=== PATIENT | female | born 1950 | race Caucasian/White ===

== ENCOUNTER → 2016-10-19 | Outpatient (CLI) | payer OTHER ==
--- NOTE | 2016-10-19 10:42 | DX ---
DEXA Bone Mineral Densitometry Clinical Indications: Postmenopausal, family history of osteoporosis, history of breast cancer Comparison: December 07, 2010 (outside- low bone density ) Technique: Bone Mineral Densitometry (BMD) by Dual Energy X-Ray Absorptiometry (DEXA) was performed utilizing the [employer] scanner. The lumbar spine was evaluated in the AP projection. The bilat eral hips and forearm were evaluated in the AP projection. Vertebral fracture assessment was also pe rformed. AP Lumbar Spine: The L1, L2, L3 and L4 vertebral bodies were evaluated. BMD: 1.089 gm/cm2 T-score: -0.9 SD Z-score: 1.1 SD AP Left Hip: Neck BMD: 0.699 gm/cm2 T-score: -2.4 SD Z-score: -0.7 SD AP Right Hip: Neck BMD: 0.675 gm/cm2 T-score: -2.6 SD Z-score: -0.9 SD AP Left Forearm, 10/20: BMD: 0.847 gm/cm2 T-score: -0.3 SD Z-score: 1.0 SD No significant change considering differences in measuring equipment. Vertebral Fracture Assessment: No significant fracture deformity. No prevertebral aortic calcificati on, significant marginal bone spurring, facet arthrosis, or intrinsic vertebral body sclerosis that would effect the accuracy of the lumbar spine BMD measurement. Conclusion: Considering the lowest measured site, the patient is osteoporotic and at increased risk for fracture. The ten year FRAX risk for any major osteoporotic fracture is 19.3% and for a hip fracture is 4.9%. Any bone loss in this patient is probably related to aging or estrogen deficiency. Consider excluding secondary metabolic causes of bone loss (reported to be present in as many as 30% of patients with normal Z scores). Basic laboratory evaluation might include blood chemistries (calci um, phosphorus, alkaline phosphatase, liver function tests, creatinine, total protein), complete bloo d count, serum 25-OH- vitamin D3 level, 24-hour urine calcium, serum TSH and serum PTH. Targeted l aboratory testing based on individual patient circumstances might include serum electrophoresis (SPEP or UPEP), anti-tissue transglutaminase antibody levels (celiac disease) , serum bone specific alkal ine phosphatase, bone turnover markers (urine, serum) or fibroblast growth factor 23 (FGF 23)(evaluat e for unexplained osteomalacia). If secondary causes are excluded, then consider initiating treatment with a bisphosphonate (such as F osamax, Actonel or Boniva). If the patient is unable to use an oral bisphosphonate, another agent suc h as IV bisphosphonates (Boniva or Reclast), teriparatide (Forteo), a selective estrogen receptor mo dulator (Evista) or denosumab ( anti RANKL monoclonal antibody) might be considered. If antiresorptive therapy is initiated and if clinically indicated, consider obtaining a baseline and 3 month followup bone resorption marker (NTX, CTX, TRAP5b or Pyridinoline, deoxypyridinoline) to mon itor the therapeutic effect. Supplementing an insufficient diet to achieve total intakes of 1500 mg calcium and 800 International Units of vitamin D daily should be considered. Osteoporosis prevention and treatment begins by modify ing risk factors. The patient should be encouraged to participate in a regular exercise program that includes weightbearing and muscle strengthening regimens, as is clinically appropriate. Recommend follow-up DEXA in one year to assess the efficacy of pharmacologic intervention and/or yao ection of appropriate secondary cause.
== END ==
LOC: FIMAGING 09:33
PROVIDERS: ATTEND Family Medicine
DX: Z13.820 Encounter for screening for osteoporosis (principal); M81.0 Age-related osteoporosis without current pathological fracture

== ENCOUNTER 2017-05-04 02:57 | Emergency (ER) | payer OTHER ==
[2017-05-04 03:10] VITALS: RESP 16
--- NOTE | 2017-05-04 03:27 | EDPHY ---
H & P Stated Complaint: R upper sided abdominal pain, flank pain Time Seen by Provider: 05/04/17 03:12 HPI/ROS: Chief Complaint: Abdominal pain HPI: 66-year-old woman has been having intermittent epigastric abdominal pain for the last 2 months. She has had some increasing frequency and stools but no diarrhea. She was seen by her PCP and had blood work done yesterday morning. She was diagnosed with a likely gastritis. She was started on Prilosec and Pepto-Bismol. She has had a decreased appetite. Tonight she had some coconut [place] about 10 o'clock and then developed some nausea about 10 minutes later with some right upper quadrant abdominal pain. She went to bed and woke up with cough then developed some pain in her right flank. She has not had any constipation. Pain at worst is about a 4/10. Is not moving. Does not feel similar to her central abdominal pain. No vomiting. No melena. There are no aggravating or alleviating factors. ROS: 10 point Review of Systems is negative except as noted in the HPI. PMH: Breast cancer status post right mastectomy many years ago Medications: Bile hormones Allergies: No known drug allergies Social History: No smoking, no alcohol, no recreational drug use Family History: Mother had her gallbladder removed, father from complications of Parkinson's disease Physical Exam: Gen: Awake, Alert, No Distress HEENT: Nose: no rhinorrhea Eyes: PERRLA, EOMI Mouth: Moist mucosa Neck: Supple, no JVD Chest: nontender, lungs clear to auscultation Heart: S1, S2 normal, no murmur Abd: Soft, no epigastric tenderness, mild right upper quadrant tenderness, no guarding Back: no CVA tenderness, no midline tenderness Ext: no edema, non-tender Skin: no rash Neuro: CN II-XII intact, Sensation grossly intact, Strength 5/5 in bilateral upper and lower extremities - Personal History Current Tetanus/Diphtheria Vaccine: Yes Current Tetanus Diphtheria and Acellular Pertussis (TDAP): Yes - Medical/Surgical History Hx Asthma: No Hx Chronic Respiratory Disease: No Hx Diabetes: No Hx Cardiac Disease: No Hx Renal Disease: No Hx Cirrhosis: No Hx Alcoholism: No Hx HIV/AIDS: No Hx Splenectomy or Spleen Trauma: No Other PMH: breast CA in her 40's - Social History Smoking Status: Never smoked Constitutional: Initial Vital Signs Temperature (C) 36.5 C 05/04/17 03:00 Heart Rate 64 05/04/17 03:00 Respiratory Rate 16 05/04/17 03:00 Blood Pressure 123/56 H 05/04/17 03:00 O2 Sat (%) 98 05/04/17 03:00 O2 Delivery Mode Room Air Allergies/Adverse Reactions: No Known Allergies Allergy (Unverified 05/04/17 03:07) Home Medications: Medication Instructions Recorded Bio Identical Hormones 05/04/17 Medical Decision Making - Diagnostics Imaging Results: Abdominal ultrasound shows no gallbladder stones, the common bile duct is normal , no gallbladder wall thickening, there are several hepatic cysts, bilateral renal calculi but no hydronephrosis. Study interpreted by Dr. Grijalva Imaging: Discussed imaging studies w/ banquet server on call Radiologist ED Course/Re-evaluation: 66-year-old with epigastric right upper quadrant pain which is likely secondary to her H pylori infection. She has a soft benign abdomen at this time. She had blood work done by her primary care physician yesterday morning which is unremarkable with the exception of a positive H pylori. Patient's urinalysis is negative here. She is comfortable. Will discharge with follow-up with primary care physician to initiate treatment for H pylori. - Data Points Laboratory Results: 05/04/17 03:30 Urine Color PALE YELLOW Urine Appearance CLEAR Urine pH 6.0 (5.0-7.5) Ur Specific [place] 1.005 (1.002-1.030) Urine Protein NEGATIVE (NEGATIVE) Urine Ketones NEGATIVE (NEGATIVE) Urine Blood NEGATIVE (NEGATIVE) Urine Nitrate NEGATIVE (NEGATIVE) Urine Bilirubin NEGATIVE (NEGATIVE) Urine Urobilinogen NEGATIVE EU EU (0.2-1.0) Ur Leukocyte Esterase NEGATIVE (NEGATIVE) Urine Glucose NEGATIVE (NEGATIVE) Departure - Departure Disposition: Home, Routine, Self-Care Clinical Impression: H. pylori infection, Peptic ulcer disease Condition: Good Instructions: Helicobacter Pylori (ED), Gastritis (ED) Additional Instructions: Follow up with primary care physician in 2-3 days to initiate treatment for H pylori infection. Return to the emergency depart for increasing pain, fevers, chills, vomiting blood, dark black bowel movements, or any other concerns. Referrals: Elidia Lopez MD [Primary Care Provider] - As per Instructions
[2017-05-04 03:50] LABS: COLOR PALE YELLOW; LEUKOCYTE ESTERASE,URINE NEGATIVE (NEGATIVE); NITRITE,URINE NEGATIVE (NEGATIVE)
[2017-05-04 07:16] VITALS: BP 121/71; PULSE 76; TEMP 98.1; O2SAT 96
== END 2017-05-04 06:00 | disposition home or self-care (01) ==
DX: K27.9 Peptic ulcer, site unspecified, unspecified as acute or chronic, without hemorrhage or perforation (principal); B96.81 Helicobacter pylori [H. pylori] as the cause of diseases classified elsewhere; Z85.3 Personal history of malignant neoplasm of breast

== ENCOUNTER → 2018-02-01 | Outpatient (CLI) | payer OTHER | LOC: FIMAGING 11:46 | PROVIDERS: ATTEND Family Medicine | DX: Z12.31 Encounter for screening mammogram for malignant neoplasm of breast (principal); Z85.3 Personal history of malignant neoplasm of breast; Z90.11 Acquired absence of right breast and nipple ==

== ENCOUNTER → 2018-02-02 | Outpatient (CLI) | payer OTHER | LOC: FIMAGING 09:58 | PROVIDERS: ATTEND Family Medicine | DX: H53.9 Unspecified visual disturbance (principal); R42 Dizziness and giddiness ==

== ENCOUNTER → 2018-08-23 | Outpatient (CLI) | payer OTHER | LOC: FIMAGING 16:19 | PROVIDERS: ATTEND Family Medicine | DX: N95.0 Postmenopausal bleeding (principal); Z79.890 Hormone replacement therapy; D25.9 Leiomyoma of uterus, unspecified ==

== ENCOUNTER → 2018-12-26 | Outpatient (CLI) | payer OTHER | LOC: FIMAGING 16:18 ==

== ENCOUNTER → 2019-01-09 | Outpatient (CLI) | payer OTHER | LOC: FIMAGING 14:37 | PROVIDERS: ATTEND Family Medicine | DX: R05 Cough (principal) ==